=== PATIENT | male | born 1975 ===

== ENCOUNTER 2016-10-18 11:23 | Emergency (ER) | payer OTHER ==
[2016-10-18 11:30] VITALS: TEMP 97.5
--- NOTE | 2016-10-18 12:17 | RAD ---
PROCEDURE: Right middle finger radiographs. HISTORY: injury COMPARISON: None available FINDINGS: RIGHT MIDDLE FINGER: Right 3rd digit appears unremarkable, without acute displaced fracture identified. Remainder of the right hand (as seen on the AP view) grossly unremarkable. JOINTS: No dislocation. SOFT TISSUES: Soft tissue swelling of the 3rd digit. No evidence of radiopaque foreign body. OTHER FINDINGS: None. IMPRESSION: Soft tissue swelling of the 3rd digit. No acute displaced fracture identified.
[2016-10-18] MEDS ORDERED: Lidocaine 1% Inj (20ml) ONE (12:23)
[2016-10-18] MEDS ORDERED: Lidocaine 1% Inj (20ml) INFIL STA (12:26)
--- NOTE | 2016-10-18 12:34 | C.PDOC ---
History Of Present Illness 41 year old male presents to the ED with complaints of pain to the right middle finger beginning just prior to arrival. Patient states he accidentally hammered his right middle finger and denies any external bleeding, weakness, or numbness. Time Seen by Provider: 10/18/16 11:47 Chief Complaint (Nursing): Finger,Hand,&Wrist History Per: Patient History/Exam Limitations: no limitations Onset/Duration Of Symptoms: Hrs Current Symptoms Are (Timing): Still Present Quality: "Pain" Recent travel outside of the [place]: No Past Medical History Reviewed: Historical Data, Nursing Documentation, Vital Signs Vital Signs: Last Vital Signs Temp 97.5 F L 10/18/16 13:14 Pulse 69 10/18/16 13:14 Resp 17 10/18/16 13:14 BP 114/77 10/18/16 13:14 Pulse Ox 98 10/18/16 13:14 - [employer] Procedures DIPHTHERIA TOXOID ADMIN (12/28/12) NAIL REMOVAL (12/28/12) TETANUS TOXOID ADMINIST (12/28/12) Family History: States: Unknown Family Hx - Social History Hx Alcohol Use: No Hx Substance Use: No - Immunization History Hx Tetanus Toxoid Vaccination: No Hx Influenza Vaccination: No Review Of Systems Constitutional: Negative for: Fever, Chills Cardiovascular: Negative for: Chest Pain Respiratory: Negative for: Shortness of Breath Musculoskeletal: Positive for: Hand Pain (pain to the right middle finger ) Neurological: Negative for: Weakness, Numbness Physical Exam - Physical Exam Appears: Non-toxic, No Acute Distress Skin: Warm, Dry Head: Atraumatic Eye(s): bilateral: Normal Inspection, PERRL, EOMI Oral Mucosa: Moist Chest: Symmetrical, No Deformity Cardiovascular: Rhythm Regular Respiratory: Normal Breath Sounds, No Rhonchi, No Wheezing Extremity: Normal ROM, Tenderness (of the right middle finger ), Swelling (of the right middle finger ), Other (75% subungual hemorrhage ) Neurological/Psych: Oriented x3 ED Course And Treatment O2 Sat by Pulse Oximetry: 95 (room air ) - Other Rad X-Ray Right Middle Finger X-Ray: Interpreted by Me, Viewed By Me Interpretation: Negative for fractures or dislocations. Procedure: Blank - Time Time Performed: 12:55 - Time Out Time Out: Side verified - Procedure Procedure:: right 3rd finger nail trephination using cautery - Consent obtained: Consent obtained: Verbal - Performed by: Performed by:: Mid-level provider - Contraindications: Contraindications:: None - Anesthetic Technique Anesthetic Technique: Regional block - Topical: Local/Regional Anesthetic:: Lidocaine 2% - Patient Position Patient Position:: Sitting - Location Location: Right Finger:: Middle - Result Result: Successful - Patient Tolerated Procedure Patient Tolerated Procedure:: Well Disposition - Disposition Referrals: Kaylyn Starks MD [Staff Provider] - [facility] [Outside] [facility] [Outside] Disposition: HOME/ ROUTINE Disposition Time: 13:11 Condition: STABLE Additional Instructions: Follow up with PMD within 1-2 days. Return to ED if feel worse. Prescriptions: Ibuprofen [Motrin Tab] 600 mg PO Q8 #30 tab Instructions: Subungual Hematoma (ED) Print Language: THAI - Clinical Impression Clinical Impression: Subungual hematoma of digit of hand
[2016-10-18 13:15] VITALS: BP 114/77; PULSE 69; RESP 17
[2016-10-18 21:56] VITALS: O2SAT 95
== END 2016-10-18 13:15 | disposition home or self-care (01) ==
LOC: C.ER 11:23
DX: S60.131A Contusion of right middle finger with damage to nail, initial encounter (principal); W22.8XXA Striking against or struck by other objects, initial encounter